=== PATIENT | female | born 1980 | race African-American/Black ===

== ENCOUNTER 2016-11-26 20:34 | Emergency (ER) | payer MEDICAID, OTHER ==
[~2016-11-26] VITALS: Ht 170.2 cm; Wt 104.0 kg
[2016-11-26 21:07] VITALS: BP 124/83
== END 2016-11-26 22:30 | disposition home or self-care (01) ==
LOC: ER 21:23
DX: L02.11 Cutaneous abscess of neck (principal); T63.301A Toxic effect of unspecified spider venom, accidental (unintentional), initial encounter
CPT/HCPCS: 99282